=== PATIENT | female | born 1935 | race Caucasian/White ===

== ENCOUNTER 2022-05-13 10:06 | Observation (INO) ==
--- NOTE | 2022-05-13 10:10 | Emergency Department Note ---
HPI General Chief complaint: Syncope Stated complaint: syncope Time Seen by Provider: 05/13/22 10:10 Source: patient Mode of arrival: ambulatory Limitations: no limitations History of Present Illness HPI Narrative: 86-year-old female presenting with syncope. Patient reportedly had a syncopal episode this morning when she was going to the bathroom. was helping her and she passed out but did not fall or hit her head. Patient was seen last week in the emergency department for abdominal pain and dark stools. Hemoglobin was stable and CT abdomen showed a 3cm abdominal mass. She has follow-up for this on Monday. She still reports intermittent dark stools. She takes an aspirin daily, not on anticoagulation. Denies increased NSAID use. No headache, chest pain, shortness of breath, fever, abdominal pain, vomiting, or dysuria. Related Data Home Medications Medication Instructions Recorded Confirmed aspirin 81 mg chewable tablet 81 mg PO DAILY 11/19/18 05/06/22 cholecalciferol (vitamin D3) 50 50 mcg PO QDAY 07/24/20 05/06/22 mcg (2,000 unit) capsule cinnamon bark PO 07/24/20 05/06/22 cranberry fruit concentrate [Azo PO 07/24/20 05/06/22 Cranberry] lactobacillus combination no.8 PO 07/24/20 05/06/22 [Adult Probiotic] multivitamin 1 tab PO QDAY 07/24/20 05/06/22 omeprazole 20 mg capsule,delayed 20 mg PO .Q3W 07/24/20 05/06/22 release psyllium husk 3.4 gram/5.4 gram 1 tbsp PO QDAY 07/24/20 05/06/22 oral powder (Metamucil) simvastatin 10 mg tablet 10 mg PO QHS 07/24/20 05/06/22 turmeric PO 07/24/20 05/06/22 vitamin B complex PO 07/24/20 05/06/22 copper gluconate 2 mg tablet 2 mg PO QDAY 08/03/20 05/06/22 glucosamine sulfate 500 mg tablet 1,500 mg PO QDAY 08/03/20 05/06/22 (Glucosamine) levothyroxine 125 mcg tablet 125 mcg PO QDAY 08/03/20 05/06/22 lutein 40 mg capsule 40 mg PO QDAY 08/03/20 05/06/22 lysine 500 mg tablet (L-Lysine) 500 mg PO QDAY 08/03/20 05/06/22 omega 7-raf-frf-fish oil 1,200 mg 1 cap PO QDAY 08/03/20 05/06/22 (144 mg-216 mg) capsule (Fish Oil) zinc 50 mg tablet 50 mg PO QDAY 08/03/20 05/06/22 calcium carbonate 500 mg-vitamin 1 tab PO 05/04/21 05/06/22 D3 10 mcg (400 unit) chewable tablet vitamin E mixed 100 unit tablet 400 mg PO QDAY 05/04/21 05/06/22 carvedilol 3.125 mg tablet 3.125 mg PO BID 06/14/21 05/06/22 fluticasone propionate 50 1 spray intranasal BID 06/14/21 05/06/22 mcg/actuation nasal spray,suspension furosemide 20 mg tablet 20 mg PO QDAY 06/14/21 05/06/22 levothyroxine 112 mcg tablet 112 mcg PO QDAY 06/14/21 05/06/22 (Euthyrox) lisinopril 2.5 mg tablet 2.5 mg PO QDAY 06/14/21 05/06/22 vitamin B complex (B 1 tab PO QDAY 06/14/21 05/06/22 Complex-Vitamin B12) Previous Rx's Medication Instructions Recorded sodium bicarbonate 650 mg tablet 650 mg PO BID #180 tabs 10/29/20 sucralfate 1 gram tablet (Carafate) 1 g PO BID #30 tabs 05/06/22 Allergies Allergy/AdvReac Type Severity Reaction Status Date / Time Penicillins Allergy Mild Rash Verified 05/06/22 10:39 Sulfa (Sulfonamide Allergy Mild Rash Verified 05/06/22 10:39 Antibiotics) Review of Systems ROS ROS Narrative: Narrative: Constitutional: Denies fever or chills Eyes: Denies vision change ENT ED: Denies throat pain Cardiovascular: Denies chest pain or palpitations Respiratory: Denies shortness of breath or cough Gastrointestinal: Reports melena; Denies abdominal pain, nausea, vomiting or diarrhea Genitourinary: Denies dysuria or hematuria Musculoskeletal: Denies back pain Integumentary: Denies rash Neurological: Denies headache, weakness or dizziness Psychiatric: Denies anxiety Endocrine: Denies fatigue Hematological/Lymphatic: Denies easy bruising PFSH Narrative Patient History Narrative: Narrative: Medical/Surgical/Family History All Active Problems (Updated 05/13/22 @ 13:04 by Luís Carrillo MD) GI bleeding (Acute) Hyperthyroidism (Chronic) Hypertension (Chronic) High cholesterol (Chronic) Heart problem (Chronic) Skin cancer (Chronic) Abdominal mass (Chronic) UTI (urinary tract infection) (Chronic) Nausea & vomiting (Chronic) Systemic lupus erythematosus (Chronic) Osteoarthritis (Chronic) Hypothyroidism (Chronic) History of vein stripping (Chronic) History of cataract surgery (Chronic ~05/16/19) History of hand surgery (Chronic ~10/16/13) History of esophagogastroduodenoscopy (Chronic) Duodenitis (Chronic) History of colonoscopy (Chronic) History of cholecystectomy (Chronic ~1972) History of appendectomy (Chronic ~1972) History of delivery (Chronic) Abdominal pain (Chronic) GERD (gastroesophageal reflux disease) (Chronic) Frequency of urination (Chronic) Herpes (Chronic) ESR raised (Chronic) CRP elevated (Chronic) Encounter for long-term (current) use of high-risk medication (Chronic) Pyuria, sterile (Chronic) Lupus (Chronic ~1998) Arthritis (Chronic) Chicken pox (Chronic) Dog bite of right hand (Chronic) Environmental allergies (Chronic) Measles (Chronic) Mumps (Chronic) Osteoarthritis of right knee (Chronic) Pneumonia (Chronic) SLE (systemic lupus erythematosus related syndrome) (Chronic) History of foot surgery (Chronic ~2006) History of hysterectomy (Chronic) History of thumb surgery (Chronic ~2006) Osteopenia (Chronic) Postmenopausal (Chronic) Long-term use of Plaquenil (Chronic) Macular degeneration (Chronic) Chronic leukopenia (Chronic) Decreased bone mass (Chronic) Chronic kidney disease (CKD) stage G3b/A2, moderately decreased glomerular filtration rate (GFR) between 30-44 mL/min/1.73 square meter and albuminuria creatinine ratio between 30-299 mg/g (Chronic) 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) Metabolic acidosis (Chronic) Asymptomatic bacteriuria (Chronic) Cardiomyopathy (Chronic) Hepatitis C antibody test negative (Chronic) GI bleed (Acute) Intraabdominal mass (Acute) Medical History (Updated 05/13/22 @ 13:04 by Luís Carrillo MD) Abdominal mass Abdominal pain Anemia due to stage 3b chronic kidney disease Arthritis Asymptomatic bacteriuria Cardiomyopathy Chicken pox child Chronic kidney disease (CKD) stage G3b/A2, moderately decreased glomerular filtration rate (GFR) between 30-44 mL/min/1.73 square meter and albuminuria creatinine ratio between 30-299 mg/g Chronic leukopenia CRP elevated Decreased bone mass Dog bite of right hand Duodenitis Encounter for long-term (current) use of high-risk medication Environmental allergies ESR raised Frequency of urination GERD (gastroesophageal reflux disease) Heart problem Hepatitis C antibody test negative Herpes High cholesterol Hypertension Hyperthyroidism Hypothyroidism Long-term use of Plaquenil Lupus (~1998) Macular degeneration Measles child Metabolic acidosis Mumps child Nausea & vomiting Osteoarthritis Osteoarthritis of right knee Osteopenia Pneumonia Postmenopausal Pyuria, sterile Skin cancer SLE (systemic lupus erythematosus related syndrome) Systemic lupus erythematosus UTI (urinary tract infection) Surgical History History of appendectomy (~1972) History of cataract surgery (~05/16/19) Dr. Don - Bilateral History of delivery 1954, 1958 History of cholecystectomy (~1972) History of colonoscopy Dr. Cronin - 10/16/2001, 07/16/[address] Cronin - 10/16/2006, 06/12/2013 History of foot surgery (~2006) Right History of hand surgery (~10/16/13) Open wound dog bite, tendon repair right index finger area History of hysterectomy History of thumb surgery (~2006) Right History of vein stripping 2 times and also had injections Family History (Updated 05/12/22 @ 08:30 by Deepika Chavez) Father Myocardial infarction, Onset Age: 75 Date: 07/30/2008 Sudden Heart disease Son Hx of CABG Date: 06/02/2011 Diabetes Daughter Diabetes Disorder of thyroid gland Trouble swallowing after surgery due to some nerve damage Cancer Mother Perforated bowel, Onset Age: 96 Date: 05/23/2006 Osteoarthritis Brother Cancer Sister Osteoarthritis Pacemaker Social History Smoking Status: Never smoker Alcohol Intake Frequency: does not drink Substance Use: does not use Exam Narrative Narrative: Narrative: General Limitations: no limitations General appearance: Present alert and in no apparent distress Head Head: Present atraumatic and normocephalic Eye Eye: Present normal appearance, PERRL and EOMI; Absent scleral icterus, conjunctival injection or nystagmus ENT ENT: Present mucous membranes moist Neck Neck: Present normal inspection and trachea midline Chest Chest: Present symmetric chest wall rise Respiratory Respiratory: Present normal lung sounds bilaterally; Absent respiratory distress, rales/crackles, wheezes, stridor or accessory muscle use Cardiovascular Cardiovascular: Present regular rate and normal rhythm; Absent systolic murmur or diastolic murmur Adbominal Abdominal: Present soft; Absent distention, tenderness, guarding, rebound, rigidity or organomegaly Rectal Rectal: Present normal rectal tone and heme (+) stool; Absent tenderness Extremities Extremities: Present normal inspection; Absent pretibial edema Back Back: Absent CVA tenderness (R) or CVA tenderness (L) Neurological Neurological: Present alert and oriented X3; Absent motor sensory deficit Psychiatric Psychiatric: Present normal affect and normal mood Skin Skin: Present warm (WNL) and dry Course Consultations Consultation #1: Dr. Solares, general surgery Time: 12:48 Consultation #2: Dr. Ellis, hospitalist Time: 13:05 Vital Signs Vital signs: Vital Signs Temperature 98.4 F 05/13/22 10:06 Pulse Rate 79 05/13/22 10:06 Respiratory Rate 16 05/13/22 10:06 Blood Pressure 133/61 05/13/22 10:06 Pulse Oximetry (%) 97 05/13/22 10:06 Oxygen Delivery Method 05/13/22 10:06 Temperature 98.4 F 05/13/22 10:06 Pulse Rate 69 05/13/22 12:50 Respiratory Rate 16 05/13/22 10:06 Blood Pressure 92/68 05/13/22 12:50 Pulse Oximetry (%) 73 L 05/13/22 12:50 Oxygen Delivery Method 05/13/22 10:06 [facility] Narrative Medical decision making narrative: 86-year-old female presenting with syncope. Vital signs are normal. Rectal exam did show dark stool that was Hemoccult positive. EKG with no ischemic changes. Will obtain labs and reevaluate. Labs notable for a hemoglobin of 8.0 which is down from 13 last week. Type and screen was ordered. Spoke with Dr. Solares of general surgery who is willing to consult on the patient for endoscopy. Patient was endorsed to Dr. Ellis, hospitalist, for admission. Lab Data Lab results reviewed: Yes I reviewed the patient's lab results. Result diagrams: 05/13/22 10:50 05/13/22 10:50 Labs: Lab Results 07/05/13/22 05/13/22 Range/Units 10:50 10:50 10:50 WBC 15.8 H (4.5-11.0) K/mcL RBC 2.68 L (3.59-5.38) M/mcL Hgb 8.0 L (11.2-15.7) g/dL Hct 24.0 L (34.1-44.9) % MCV 89.6 (80.0-100.0) fL MCH 29.9 (26.0-34.0) pg MCHC 33.3 (31.0-36.0) g/dL RDW 14.0 (11.5-14.5) % Plt Count 304 (140-440) K/mcL MPV 10.2 (7.4-10.4) fL Immature Gran % (Auto) 0.7 H (0.0-0.5) % Neut % (Auto) 80.5 H (38.0-78.0) % Lymph % (Auto) 12.6 L (15.5-49.0) % Ritchie % (Auto) 5.5 (1.0-12.0) % Eos % (Auto) 0.3 (0.0-7.0) % Baso % (Auto) 0.4 (0.0-2.0) % Lymph # (Auto) 1.98 (1.50-4.80) K/mcL Ritchie # (Auto) 0.86 (0.10-0.90) K/mcL Eos # (Auto) 0.04 (0.00-0.70) K/mcL Baso # (Auto) 0.07 (0.00-0.30) K/mcL Immature Gran # 0.11 H (0.00-0.05) K/mcl Absolute Neutrophils 12.80 H (1.80-8.00) K/mcL PT 16.0 H (11.9-14.5) sec INR 1.2 H (0.9-1.1) APTT 32.7 (20.0-37.0) sec Sodium 134 (133-145) mmol/L Potassium 3.4 (3.3-5.1) mmol/L Chloride 103 (96-108) mmol/L Carbon Dioxide 24 (22-30) mmol/L Anion Gap 7.0 L (8.0-16.0) BUN 40 H (8-23) mg/dL Creatinine 0.9 (0.6-1.1) mg/dL GFR Calculation 57 Glucose 112 H (70-105) mg/dL Calcium 8.1 L (8.6-10.4) mg/dL Total Bilirubin 0.3 (0.1-1.0) mg/dL AST 23 (<32) U/L ALT 17 (<40) U/L Alkaline Phosphatase 121 H (39-117) U/L Total Protein 5.5 L (5.9-8.4) gm/dL Albumin 2.0 L (3.2-5.2) gm/dL Globulin 3.5 (2.2-3.7) gm/dL Albumin/Globulin Ratio 0.6 L (1.0-2.3) POC Troponin I (0.02-0.08) 05/13/22 Range/Units 10:53 WBC (4.5-11.0) K/mcL RBC (3.59-5.38) M/mcL Hgb (11.2-15.7) g/dL Hct (34.1-44.9) % MCV (80.0-100.0) fL MCH (26.0-34.0) pg MCHC (31.0-36.0) g/dL RDW (11.5-14.5) % Plt Count (140-440) K/mcL MPV (7.4-10.4) fL Immature Gran % (Auto) (0.0-0.5) % Neut % (Auto) (38.0-78.0) % Lymph % (Auto) (15.5-49.0) % Ritchie % (Auto) (1.0-12.0) % Eos % (Auto) (0.0-7.0) % Baso % (Auto) (0.0-2.0) % Lymph # (Auto) (1.50-4.80) K/mcL Ritchie # (Auto) (0.10-0.90) K/mcL Eos # (Auto) (0.00-0.70) K/mcL Baso # (Auto) (0.00-0.30) K/mcL Immature Gran # (0.00-0.05) K/mcl Absolute Neutrophils (1.80-8.00) K/mcL PT (11.9-14.5) sec INR (0.9-1.1) APTT (20.0-37.0) sec Sodium (133-145) mmol/L Potassium (3.3-5.1) mmol/L Chloride (96-108) mmol/L Carbon Dioxide (22-30) mmol/L Anion Gap (8.0-16.0) BUN (8-23) mg/dL Creatinine (0.6-1.1) mg/dL GFR Calculation Glucose (70-105) mg/dL Calcium (8.6-10.4) mg/dL Total Bilirubin (0.1-1.0) mg/dL AST (<32) U/L ALT (<40) U/L Alkaline Phosphatase (39-117) U/L Total Protein (5.9-8.4) gm/dL Albumin (3.2-5.2) gm/dL Globulin (2.2-3.7) gm/dL Albumin/Globulin Ratio (1.0-2.3) POC Troponin I 0 L (0.02-0.08) EKG Data EKG #1: EKG attestation: Yes I reviewed and interpreted this EKG. and Yes There are no EKG findings of acute coronary syndrome EKG results narrative: Sinus rhythm at [address] elevation or depression. Interpretation: no acute changes Discharge Plan Patient/Caregiver Discharge Instructions Pt seen by PARTS DEPARTMENT MANAGER/PA only: No Clinical Impression: GI bleeding Patient Disposition: Xfer As Outpt/Obs ([facility]) Condition: Fair Follow up with: Maria Fernanda Banerjee NP-C [Primary Care Provider] - Prescriptions: No Action vitamin B complex PO cinnamon bark PO cranberry fruit concentrate PO Metamucil 3.4 gram/5.4 gram powder 1 tbsp PO QDAY Rx Instructions: mix into at least 8 oz of water or juice before administering multivitamin Tablet 1 tab PO QDAY omeprazole 20 mg capsule,delayed release(DR/EC) 20 mg PO .Q3W lactobacillus combination no.8 PO simvastatin 10 mg tablet 10 mg PO QHS turmeric PO cholecalciferol (vitamin D3) 50 mcg (2,000 unit) capsule 50 mcg PO QDAY glucosamine sulfate [Glucosamine] 500 mg tablet 1,500 mg PO QDAY Rx Instructions: administer with meals vitamin E mixed 100 unit tablet 400 mg PO QDAY vitamin B complex [B Complex-Vitamin B12] Tablet 1 tab PO QDAY carvedilol 3.125 mg tablet 3.125 mg PO BID Rx Instructions: must administer with a meal/food levothyroxine [Euthyrox] 112 mcg tablet 112 mcg PO QDAY fluticasone propionate 50 mcg/actuation spray,suspension 1 spray intranasal BID Rx Instructions: administer into each nostril furosemide 20 mg tablet 20 mg PO QDAY lisinopril 2.5 mg tablet 2.5 mg PO QDAY sodium bicarbonate 650 mg tablet 650 mg PO BID Qty: 180 4RF copper gluconate 2 mg tablet 2 mg PO QDAY levothyroxine 125 mcg tablet 125 mcg PO QDAY lutein 40 mg capsule 40 mg PO QDAY Rx Instructions: administer with meals lysine [L-Lysine] 500 mg tablet 500 mg PO QDAY omega 1-hsh-djr-fish oil [Fish Oil] 1,200 (144-216) mg capsule 1 cap PO QDAY zinc 50 mg tablet 50 mg PO QDAY calcium carbonate-vitamin D3 500 mg(1,250mg) -400 unit tablet,chewable 1 tab PO aspirin 81 MG tablet,chewable 81 mg PO DAILY sucralfate [Carafate] 1 gram tablet 1 g PO BID Qty: 30 0RF
[2022-05-13] MEDS ORDERED: 0.9 % SODIUM CHLORIDE 250 ML IV SCH (10:30)
[2022-05-13 11:59] LABS: INR 1.2 (0.9-1.1); Partial Thromboplastin Time 32.7 sec (20.0-37.0)
[2022-05-13 12:14] LABS: ALT/SGPT 17 U/L (<40); AST/SGOT 23 U/L (<32); Albumin/Globulin Ratio 0.6 (1.0-2.3); Alkaline Phosphatase 121 U/L (39-117); Bilirubin,Total 0.3 mg/dL (0.1-1.0); Blood Urea Nitrogen 40 mg/dL (8-23); Calcium 8.1 mg/dL (8.6-10.4); Carbon Dioxide 24 mmol/L (22-30); Chloride 103 mmol/L (96-108); Globulin 3.5 gm/dL (2.2-3.7); Glomerular Filtration Rate 57; Glucose 112 mg/dL (70-105)
[2022-05-13 12:30] LABS: Basophils # (Auto) 0.07 K/mcL (0.00-0.30); Basophils % (Auto) 0.4 % (0.0-2.0); Eosinophils # (Auto) 0.04 K/mcL (0.00-0.70); Eosinophils % (Auto) 0.3 % (0.0-7.0); Lymphocytes # (Auto) 1.98 K/mcL (1.50-4.80); Lymphocytes % (Auto) 12.6 % (15.5-49.0); Mean Cell Volume 89.6 fL (80.0-100.0); Mean Corpuscular HGB Conc 33.3 g/dL (31.0-36.0); Mean Platelet Volume 10.2 fL (7.4-10.4); Monocytes # (Auto) 0.86 K/mcL (0.10-0.90); Monocytes % (Auto) 5.5 % (1.0-12.0); Neutrophils % (Auto) 80.5 % (38.0-78.0); Platelet Count 304 K/mcL (140-440); RBC 2.68 M/mcL (3.59-5.38); WBC 15.8 K/mcL (4.5-11.0)
[2022-05-13] MEDS ORDERED: 0.9 % SODIUM CHLORIDE 1,000 ML IV ONE (12:58)
--- NOTE | 2022-05-13 13:44 | Internal Med History&Physical ---
HPI History of Present Illness Patient information: Note initiated : 05/13/22 at 1:34 pm Service Date, if different from initiated Date: [] Patient: Cassie Vora 86 y/o F admitted on for syncope. Chief Complaint: [black stool] Chief complaint: black stool History of present illness: Ms. Vora is a 86 year old F history of lupus, essential hypertensions, mixed dyslipidemia, hypothyroidism, presenting with 1 week history of black stool. She presented to our ED last Monday for similar complaint and her hemoglobin count was 13.0. She was being discharged home. She complains of having continued multiple episode of black stool since being discharged from the ED last week. Earlier today she had a near syncope episode and was being brought to our ED for further reevaluations. She is committing of also having diffused mild cramping constant abdominal pain. Multiple episode of black stool without fresh blood. Denies any chest pain palpitations or shortness of breath. Patient is only on aspirin and is not otherwise on any blood thinner. Of note, CT abdomen imaging done from last ER visit showing a 3 cm satellite lesion with heavy central calcifications within the mesenteric cavity in the right mid abdomen. A follow-up biopsy examination was being scheduled for next Monday. Vital signs at ED presentations significant for borderline low blood pressure. Labs significant for hemoglobin count of 8.0. Constitutional Constitutional: Absent chills, excessive sweating, fatigue, fever(s) or weakness EENT Eyes: Absent blurry vision, change in vision, loss of vision or other visual disturbances Ears: Absent decreased hearing or tinnitus Nose, mouth and throat: Absent abnormal hearing, dry mouth, headache(s), nasal congestion or sore throat Cardiovascular Cardiovascular: Absent chest pain, chest pain at rest, edema, irregular heart rhythm or palpatations Respiratory Respiratory: Absent cough, dyspnea or wheezing Gastrointestinal Gastrointestinal: Present melena; Absent abdominal pain, constipation, diarrhea, nausea or vomiting Musculoskeletal Musculoskeletal: Absent back pain, deformity, limited range of motion, muscle cramps, muscle weakness or numbness Integumentary Integumentary: Absent lesions, rash or wounds Neurological Neurological: Absent focal weakness, headache(s) or numbness Psychiatric Psychiatric: Absent anxiety, depression or hallucinations PFSH PFSH All Active Problems (Updated 05/13/22 @ 13:40 by Anthony Ellis MD) Dyslipidemia (Acute) GI bleeding (Acute) Hyperthyroidism (Chronic) Hypertension (Chronic) High cholesterol (Chronic) Heart problem (Chronic) Skin cancer (Chronic) Abdominal mass (Chronic) UTI (urinary tract infection) (Chronic) Nausea & vomiting (Chronic) Systemic lupus erythematosus (Chronic) Osteoarthritis (Chronic) Hypothyroidism (Chronic) History of vein stripping (Chronic) History of cataract surgery (Chronic ~05/16/19) History of hand surgery (Chronic ~10/16/13) History of esophagogastroduodenoscopy (Chronic) Duodenitis (Chronic) History of colonoscopy (Chronic) History of cholecystectomy (Chronic ~1972) History of appendectomy (Chronic ~1972) History of delivery (Chronic) Abdominal pain (Chronic) GERD (gastroesophageal reflux disease) (Chronic) Frequency of urination (Chronic) Herpes (Chronic) ESR raised (Chronic) CRP elevated (Chronic) Encounter for long-term (current) use of high-risk medication (Chronic) Pyuria, sterile (Chronic) Lupus (Chronic ~1998) Arthritis (Chronic) Chicken pox (Chronic) Dog bite of right hand (Chronic) Environmental allergies (Chronic) Measles (Chronic) Mumps (Chronic) Osteoarthritis of right knee (Chronic) Pneumonia (Chronic) SLE (systemic lupus erythematosus related syndrome) (Chronic) History of foot surgery (Chronic ~2006) History of hysterectomy (Chronic) History of thumb surgery (Chronic ~2006) Osteopenia (Chronic) Postmenopausal (Chronic) Long-term use of Plaquenil (Chronic) Macular degeneration (Chronic) Chronic leukopenia (Chronic) Decreased bone mass (Chronic) Chronic kidney disease (CKD) stage G3b/A2, moderately decreased glomerular filtration rate (GFR) between 30-44 mL/min/1.73 square meter and albuminuria creatinine ratio between 30-299 mg/g (Chronic) 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) Metabolic acidosis (Chronic) Asymptomatic bacteriuria (Chronic) Cardiomyopathy (Chronic) Hepatitis C antibody test negative (Chronic) GI bleed (Acute) Intraabdominal mass (Acute) Medical History (Updated 05/13/22 @ 13:40 by Anthony Ellis MD) Abdominal mass Abdominal pain Anemia due to stage 3b chronic kidney disease Arthritis Asymptomatic bacteriuria Cardiomyopathy Chicken pox child Chronic kidney disease (CKD) stage G3b/A2, moderately decreased glomerular filtration rate (GFR) between 30-44 mL/min/1.73 square meter and albuminuria creatinine ratio between 30-299 mg/g Chronic leukopenia CRP elevated Decreased bone mass Dog bite of right hand Duodenitis Encounter for long-term (current) use of high-risk medication Environmental allergies ESR raised Frequency of urination GERD (gastroesophageal reflux disease) Heart problem Hepatitis C antibody test negative Herpes High cholesterol Hypertension Hyperthyroidism Hypothyroidism Long-term use of Plaquenil Lupus (~1998) Macular degeneration Measles child Metabolic acidosis Mumps child Nausea & vomiting Osteoarthritis Osteoarthritis of right knee Osteopenia Pneumonia Postmenopausal Pyuria, sterile Skin cancer SLE (systemic lupus erythematosus related syndrome) Systemic lupus erythematosus UTI (urinary tract infection) Surgical History History of appendectomy (~1972) History of cataract surgery (~05/16/19) Dr. Don - Bilateral History of delivery 1954, 1958 History of cholecystectomy (~1972) History of colonoscopy Dr. Cronin - 10/16/2001, 07/16/[address] Cronin - 10/16/2006, 06/12/2013 History of foot surgery (~2006) Right History of hand surgery (~10/16/13) Open wound dog bite, tendon repair right index finger area History of hysterectomy History of thumb surgery (~2006) Right History of vein stripping 2 times and also had injections Family History (Updated 05/12/22 @ 08:30 by Deepika Chavez) Father Myocardial infarction, Onset Age: 75 Date: 07/30/2008 Sudden Heart disease Son Hx of CABG Date: 06/02/2011 Diabetes Daughter Diabetes Disorder of thyroid gland Trouble swallowing after surgery due to some nerve damage Cancer Mother Perforated bowel, Onset Age: 96 Date: 05/23/2006 Osteoarthritis Brother Cancer Sister Osteoarthritis Pacemaker Social History housing: house lives independently: Yes marital status: education level: high school occupational status: retired physical activity: none smoking status: Never smoker alcohol intake frequency: does not drink substance use type: does not use seatbelt use: always MEDS/ALLERGIES Home Medications and Allergies Home Medications Medication Instructions Recorded Confirmed Type aspirin 81 mg chewable tablet 81 mg PO DAILY 11/19/18 05/06/22 History cholecalciferol (vitamin D3) 50 50 mcg PO QDAY 07/24/20 05/06/22 History mcg (2,000 unit) capsule cinnamon bark PO 07/24/20 05/06/22 History cranberry fruit concentrate [Azo PO 07/24/20 05/06/22 History Cranberry] lactobacillus combination no.8 PO 07/24/20 05/06/22 History [Adult Probiotic] multivitamin 1 tab PO QDAY 07/24/20 05/06/22 History omeprazole 20 mg capsule,delayed 20 mg PO .Q3W 07/24/20 05/06/22 History release psyllium husk 3.4 gram/5.4 gram 1 tbsp PO QDAY 07/24/20 05/06/22 History oral powder (Metamucil) simvastatin 10 mg tablet 10 mg PO QHS 07/24/20 05/06/22 History turmeric PO 07/24/20 05/06/22 History vitamin B complex PO 07/24/20 05/06/22 History copper gluconate 2 mg tablet 2 mg PO QDAY 08/03/20 05/06/22 History glucosamine sulfate 500 mg tablet 1,500 mg PO QDAY 08/03/20 05/06/22 History (Glucosamine) levothyroxine 125 mcg tablet 125 mcg PO QDAY 08/03/20 05/06/22 History lutein 40 mg capsule 40 mg PO QDAY 08/03/20 05/06/22 History lysine 500 mg tablet (L-Lysine) 500 mg PO QDAY 08/03/20 05/06/22 History omega 2-jcr-sqf-fish oil 1,200 mg 1 cap PO QDAY 08/03/20 05/06/22 History (144 mg-216 mg) capsule (Fish Oil) zinc 50 mg tablet 50 mg PO QDAY 08/03/20 05/06/22 History sodium bicarbonate 650 mg tablet 650 mg PO BID #180 tabs 10/29/20 05/06/22 Rx calcium carbonate 500 mg-vitamin 1 tab PO 05/04/21 05/06/22 History D3 10 mcg (400 unit) chewable tablet vitamin E mixed 100 unit tablet 400 mg PO QDAY 05/04/21 05/06/22 History carvedilol 3.125 mg tablet 3.125 mg PO BID 06/14/21 05/06/22 History fluticasone propionate 50 1 spray intranasal BID 06/14/21 05/06/22 History mcg/actuation nasal spray,suspension furosemide 20 mg tablet 20 mg PO QDAY 06/14/21 05/06/22 History levothyroxine 112 mcg tablet 112 mcg PO QDAY 06/14/21 05/06/22 History (Euthyrox) lisinopril 2.5 mg tablet 2.5 mg PO QDAY 06/14/21 05/06/22 History vitamin B complex (B 1 tab PO QDAY 06/14/21 05/06/22 History Complex-Vitamin B12) sucralfate 1 gram tablet (Carafate) 1 g PO BID #30 tabs 05/06/22 Rx Allergies Allergy/AdvReac Type Severity Reaction Status Date / Time Penicillins Allergy Mild Rash Verified 05/06/22 10:39 Sulfa (Sulfonamide Allergy Mild Rash Verified 05/06/22 10:39 Antibiotics) EXAM Constitutional Vitals: Temp Pulse Resp BP Pulse Ox O2 Del Method 36.9 C 79 16 119/61 100 05/13/22 10:06 05/13/22 13:16 05/13/22 10:06 05/13/22 13:16 05/13/22 13:16 05/13/22 10:06 General appearance: cooperative and no acute distress Head Head exam: Present atraumatic and normocephalic Eye Eye exam: Present EOMI and PERRL ENT ENT exam: Present mucous membranes moist, normal exam and normal external ear exam Neck Neck exam: Present normal inspection; Absent lymphadenopathy, tenderness or thyromegaly Respiratory Respiratory exam: Absent accessory muscle use, respiratory distress or wheezes Cardiovascular Cardiovascular exam: Present normal rate and rhythm; Absent JVD GI/Abdominal GI/Abdominal exam: Present normal bowel sounds, soft and tenderness; Absent organomegaly Extremities Exam Extremities exam: Present full ROM, normal capillary refill and normal inspection; Absent tenderness Neurological Exam Neurological exam: Present alert, CN II-XII intact and oriented X3; Absent motor sensory deficit Psychiatric Psychiatric exam: Present normal affect and normal mood; Absent anxious or depressed Skin Skin exam: Present dry and intact DATA Data Completed and Pending Labs: Labs from last 24 hours 05/13/22 05/13/22 05/13/22 10:53 10:50 10:50 WBC 15.8 H RBC 2.68 L Hgb 8.0 L Hct 24.0 L MCV 89.6 MCH 29.9 MCHC 33.3 RDW 14.0 Plt Count 304 MPV 10.2 Immature Gran % (Auto) 0.7 H Neut % (Auto) 80.5 H Lymph % (Auto) 12.6 L [place] % (Auto) 5.5 Eos % (Auto) 0.3 Baso % (Auto) 0.4 Lymph # (Auto) 1.98 [place] # (Auto) 0.86 Eos # (Auto) 0.04 Baso # (Auto) 0.07 Immature Gran # 0.11 H Absolute Neutrophils 12.80 H PT 16.0 H INR 1.2 H APTT 32.7 Sodium Potassium Chloride Carbon Dioxide Anion Gap BUN Creatinine GFR Calculation Glucose Calcium Total Bilirubin AST ALT Alkaline Phosphatase Total Protein Albumin Globulin Albumin/Globulin Ratio POC Troponin I 0 L 05/13/22 10:50 WBC RBC Hgb Hct MCV MCH MCHC RDW Plt Count MPV Immature Gran % (Auto) Neut % (Auto) Lymph % (Auto) [place] % (Auto) Eos % (Auto) Baso % (Auto) Lymph # (Auto) [place] # (Auto) Eos # (Auto) Baso # (Auto) Immature Gran # Absolute Neutrophils PT INR APTT Sodium 134 Potassium 3.4 Chloride 103 Carbon Dioxide 24 Anion Gap 7.0 L BUN 40 H Creatinine 0.9 GFR Calculation 57 Glucose 112 H Calcium 8.1 L Total Bilirubin 0.3 AST 23 ALT 17 Alkaline Phosphatase 121 H Total Protein 5.5 L Albumin 2.0 L Globulin 3.5 Albumin/Globulin Ratio 0.6 L POC Troponin I A/P Assessment and plan (1) GI bleeding: Status: Acute (2) Hypertension: Status: Chronic (3) Dyslipidemia: Status: Acute (4) SLE (systemic lupus erythematosus related syndrome): Status: Chronic (5) Intraabdominal mass: Status: Acute (6) Hypothyroidism: Status: Chronic Narrative A/P Narrative: Assessment and Plans: 1. (Upper) GI bleeding: Observation med surg telemetry General surgeon Dr. Solares consulted, plan to perform EGD tomorrow NPO after midnight wth IV fluid NS@100cc/hr Protonix 40mg IV BID Sucralfate Serial cbc to trend H/H Hold Aspirin 2. Intraabdominal mass: Pending biopsy next Monday05/17/22 3. h/o essential hypertension: Hold oral antihypertensives (Coreg, Lisinopril) for borderline blood pressure 4. Dyslipidemia: Continue statin therapy 5. h/o SLE: Continue to monitor 6. h/o hypothyroidism: Continue thyroid replacement therapy GI ppx: Protonix 40mg IV BID DVT ppx: SCDs Code status: Full Prognosis: stable Disposition: observation med telemetry Time Spent With Patient Time: Total time spent is greater than 50% in coordination of care (as documented) at patient's floor/unit and/or counseling patient: Total time spent with greater than 50% in coordination of care (as documented) at patient's floor/unit and/or counseling patient:: 50 - 70 minutes
--- NOTE | 2022-05-13 13:58 | EKG ---
[facility] Test Date: 2022-05-13 Pat Name: Cassie Vora Department: ED Room: Gender: Female Technology Program Manager: CS : [id number] Requested By: Luís Carrillo Order Number: [id number] Reading MD: Larry Pena Measurements Intervals [place] Rate: 79 P: 54 NV: 181 QRS: -13 QRSD: 114 T: 102 QT: 407 QTc: 467 Interpretive Statements Sinus rhythm Probable LVH with secondary repol abnrm Electronically Signed On 05-13-2022 13:58:09 PDT by Larry Pena /store/M0/[id number]
[2022-05-13] MEDS ORDERED: ONDANSETRON 4 MG/2 ML VIAL IV PRN (14:49)
[2022-05-13] MEDS ORDERED: ACETAMINOPHEN 325 MG TABLET PO PRN (14:49)
[2022-05-13] MEDS ORDERED: IPRATROPIUM/ALBUTEROL 3 ML AMPUL.NEB NEB PRN (14:49)
[2022-05-13] MEDS ORDERED: traZODone HCL 50 MG TABLET PO PRN (14:49)
[2022-05-13] MEDS: 0.9 % SODIUM CHLORIDE 10 ML SYRINGE IV SCH ×2 (17:31→20:29)
[2022-05-13] MEDS: SUCRALFATE 1 GM TABLET PO SCH (17:32)
[2022-05-13] MEDS: PANTOPRAZOLE 40 MG VIAL IV SCH (17:32)
[2022-05-13] MEDS: 0.9 % SODIUM CHLORIDE 1,000 ML IV SCH (17:32)
[2022-05-13 18:21] LABS: Basophils # (Auto) 0.07 K/mcL (0.00-0.30); Basophils % (Auto) 0.6 % (0.0-2.0); Eosinophils # (Auto) 0.13 K/mcL (0.00-0.70); Eosinophils % (Auto) 1.1 % (0.0-7.0); Hematocrit 22.7 % (34.1-44.9); Hemoglobin 7.6 g/dL (11.2-15.7); Lymphocytes # (Auto) 2.15 K/mcL (1.50-4.80); Lymphocytes % (Auto) 17.8 % (15.5-49.0); Mean Cell Volume 89.4 fL (80.0-100.0); Mean Corpuscular HGB Conc 33.5 g/dL (31.0-36.0); Mean Platelet Volume 9.8 fL (7.4-10.4); Monocytes # (Auto) 0.69 K/mcL (0.10-0.90); Monocytes % (Auto) 5.7 % (1.0-12.0); Neutrophils % (Auto) 74.3 % (38.0-78.0); Platelet Count 313 K/mcL (140-440); RBC 2.54 M/mcL (3.59-5.38); Red Cell Distribution Width 14.1 % (11.5-14.5); WBC 12.1 K/mcL (4.5-11.0)
[2022-05-13] MEDS: DOCUSATE SODIUM 100 MG CAPSULE PO SCH (20:29)
[2022-05-13] MEDS: FLUTICASONE PROPIONATE SPRAY.NAS NS SCH (20:29)
[2022-05-13] MEDS ORDERED: SIMVASTATIN 10 MG TABLET PO SCH (21:00)
[2022-05-13] MEDS ORDERED: SENNOSIDES 1 TABLET PO SCH (21:00)
--- NOTE | 2022-05-13 22:38 | General Surgery Consult Note ---
HPI Data of Consult Patient: new to practice Consult date: 05/13/22 Primary Care Provider: Maria Fernanda Banerjee NP Consult Narrative Reason for consult: GI bleed History of present illness: Ms. Vora is a 86 year old F history of lupus, essential hypertensions, mixed dyslipidemia, hypothyroidism, presenting with 1 week history of black stool. She presented to our ED last Monday for similar complaint and her hemoglobin count was 13.0. She was being discharged home. She complains of having continued multiple episode of black stool since being discharged from the ED last week. Earlier today she had a near syncope episode and was being brought to our ED for further reevaluations. She is committing of also having diffused mild cramping constant abdominal pain. Multiple episode of black stool without fresh blood. Denies any chest pain palpitations or shortness of breath. Patient is only on aspirin and is not otherwise on any blood thinner. Of note, CT abdomen imaging done from last ER visit showing a 3 cm satellite lesion with heavy central calcifications within the mesenteric cavity in the right mid abdomen. A follow-up biopsy examination was being scheduled for next Monday. Vital signs at ED presentations significant for borderline low blood pressure. Labs significant for hemoglobin count of 8.0. I was asked to see patiient for upper endoscopy. cc:: CC: Anthony Ellis MD Review of Systems Review of systems: All systems reviewed, negative other than above PFSH PFSH All Active Problems (Updated 05/13/22 @ 13:40 by Anthony Ellis MD) Dyslipidemia (Acute) GI bleeding (Acute) Hyperthyroidism (Chronic) Hypertension (Chronic) High cholesterol (Chronic) Heart problem (Chronic) Skin cancer (Chronic) Abdominal mass (Chronic) UTI (urinary tract infection) (Chronic) Nausea & vomiting (Chronic) Systemic lupus erythematosus (Chronic) Osteoarthritis (Chronic) Hypothyroidism (Chronic) History of vein stripping (Chronic) History of cataract surgery (Chronic ~05/16/19) History of hand surgery (Chronic ~10/16/13) History of esophagogastroduodenoscopy (Chronic) Duodenitis (Chronic) History of colonoscopy (Chronic) History of cholecystectomy (Chronic ~1972) History of appendectomy (Chronic ~1972) History of delivery (Chronic) Abdominal pain (Chronic) GERD (gastroesophageal reflux disease) (Chronic) Frequency of urination (Chronic) Herpes (Chronic) ESR raised (Chronic) CRP elevated (Chronic) Encounter for long-term (current) use of high-risk medication (Chronic) Pyuria, sterile (Chronic) Lupus (Chronic ~1998) Arthritis (Chronic) Chicken pox (Chronic) Dog bite of right hand (Chronic) Environmental allergies (Chronic) Measles (Chronic) Mumps (Chronic) Osteoarthritis of right knee (Chronic) Pneumonia (Chronic) SLE (systemic lupus erythematosus related syndrome) (Chronic) History of foot surgery (Chronic ~2006) History of hysterectomy (Chronic) History of thumb surgery (Chronic ~2006) Osteopenia (Chronic) Postmenopausal (Chronic) Long-term use of Plaquenil (Chronic) Macular degeneration (Chronic) Chronic leukopenia (Chronic) Decreased bone mass (Chronic) Chronic kidney disease (CKD) stage G3b/A2, moderately decreased glomerular filtration rate (GFR) between 30-44 mL/min/1.73 square meter and albuminuria creatinine ratio between 30-299 mg/g (Chronic) 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) Metabolic acidosis (Chronic) Asymptomatic bacteriuria (Chronic) Cardiomyopathy (Chronic) Hepatitis C antibody test negative (Chronic) GI bleed (Acute) Intraabdominal mass (Acute) Medical History (Updated 05/13/22 @ 13:40 by Anthony Ellis MD) Abdominal mass Abdominal pain Anemia due to stage 3b chronic kidney disease Arthritis Asymptomatic bacteriuria Cardiomyopathy Chicken pox child Chronic kidney disease (CKD) stage G3b/A2, moderately decreased glomerular filtration rate (GFR) between 30-44 mL/min/1.73 square meter and albuminuria creatinine ratio between 30-299 mg/g Chronic leukopenia CRP elevated Decreased bone mass Dog bite of right hand Duodenitis Encounter for long-term (current) use of high-risk medication Environmental allergies ESR raised Frequency of urination GERD (gastroesophageal reflux disease) Heart problem Hepatitis C antibody test negative Herpes High cholesterol Hypertension Hyperthyroidism Hypothyroidism Long-term use of Plaquenil Lupus (~1998) Macular degeneration Measles child Metabolic acidosis Mumps child Nausea & vomiting Osteoarthritis Osteoarthritis of right knee Osteopenia Pneumonia Postmenopausal Pyuria, sterile Skin cancer SLE (systemic lupus erythematosus related syndrome) Systemic lupus erythematosus UTI (urinary tract infection) Surgical History History of appendectomy (~1972) History of cataract surgery (~05/16/19) Dr. Don - Bilateral History of delivery 1954, 1959 History of cholecystectomy (~1972) History of colonoscopy Dr. Cronin - 10/16/2001, 07/16/[address] Cronin - 10/16/2006, 06/12/2013 History of foot surgery (~2006) Right History of hand surgery (~10/16/13) Open wound dog bite, tendon repair right index finger area History of hysterectomy History of thumb surgery (~2006) Right History of vein stripping 2 times and also had injections Family History (Updated 05/12/22 @ 08:30 by Deepika Chavez) Father Myocardial infarction, Onset Age: 75 Date: 07/30/2008 Sudden Heart disease Son Hx of CABG Date: 06/02/2011 Diabetes Daughter Diabetes Disorder of thyroid gland Trouble swallowing after surgery due to some nerve damage Cancer Mother Perforated bowel, Onset Age: 96 Date: 05/23/2006 Osteoarthritis Brother Cancer Sister Osteoarthritis Pacemaker Social History housing: house lives independently: Yes marital status: education level: high school occupational status: retired physical activity: none smoking status: Never smoker alcohol intake frequency: does not drink substance use type: does not use seatbelt use: always MEDS/ALLERGIES Home Medications and Allergies Home Medications Medication Instructions Recorded Confirmed Type aspirin 81 mg chewable tablet 81 mg PO DAILY 11/19/18 05/06/22 History cholecalciferol (vitamin D3) 50 50 mcg PO QDAY 07/24/20 05/06/22 History mcg (2,000 unit) capsule cinnamon bark PO 07/24/20 05/06/22 History cranberry fruit concentrate [Azo PO 07/24/20 05/06/22 History Cranberry] lactobacillus combination no.8 PO 07/24/20 05/06/22 History [Adult Probiotic] multivitamin 1 tab PO QDAY 07/24/20 05/06/22 History omeprazole 20 mg capsule,delayed 20 mg PO .Q3W 07/24/20 05/06/22 History release psyllium husk 3.4 gram/5.4 gram 1 tbsp PO QDAY 07/24/20 05/06/22 History oral powder (Metamucil) simvastatin 10 mg tablet 10 mg PO QHS 07/24/20 05/06/22 History turmeric PO 07/24/20 05/06/22 History vitamin B complex PO 07/24/20 05/06/22 History copper gluconate 2 mg tablet 2 mg PO QDAY 08/03/20 05/06/22 History glucosamine sulfate 500 mg tablet 1,500 mg PO QDAY 08/03/20 05/06/22 History (Glucosamine) lutein 40 mg capsule 40 mg PO QDAY 08/03/20 05/06/22 History lysine 500 mg tablet (L-Lysine) 500 mg PO QDAY 08/03/20 05/06/22 History omega 1-lyf-kxx-fish oil 1,200 mg 1 cap PO QDAY 08/03/20 05/06/22 History (144 mg-216 mg) capsule (Fish Oil) zinc 50 mg tablet 50 mg PO QDAY 08/03/20 05/06/22 History sodium bicarbonate 650 mg tablet 650 mg PO BID #180 tabs 10/29/20 05/06/22 Rx calcium carbonate 500 mg-vitamin 1 tab PO 05/04/21 05/06/22 History D3 10 mcg (400 unit) chewable tablet vitamin E mixed 100 unit tablet 400 mg PO QDAY 05/04/21 05/06/22 History carvedilol 3.125 mg tablet 3.125 mg PO BID 06/14/21 05/06/22 History fluticasone propionate 50 1 spray intranasal BID 06/14/21 05/06/22 History mcg/actuation nasal spray,suspension furosemide 20 mg tablet 20 mg PO QDAY 06/14/21 05/06/22 History levothyroxine 112 mcg tablet 112 mcg PO Q48H 06/14/21 05/13/22 History (Euthyrox) lisinopril 2.5 mg tablet 2.5 mg PO QDAY 06/14/21 05/06/22 History vitamin B complex (B 1 tab PO QDAY 06/14/21 05/06/22 History Complex-Vitamin B12) sucralfate 1 gram tablet (Carafate) 1 g PO BID #30 tabs 05/06/22 Rx levothyroxine 100 mcg tablet 100 mcg PO Q48H 05/13/22 05/13/22 History Allergies Allergy/AdvReac Type Severity Reaction Status Date / Time Penicillins Allergy Mild Rash Verified 05/06/22 10:39 Sulfa (Sulfonamide Allergy Mild Rash Verified 05/06/22 10:39 Antibiotics) Physical Examination Vital Signs Vital signs: Temp Pulse Resp BP Pulse Ox O2 Del Method 98.9 F 80 16 103/54 98 05/13/22 14:00 05/13/22 20:21 05/13/22 20:21 05/13/22 20:21 05/13/22 20:21 05/13/22 20:21 General physical appearance General physical exam: well developed, well nourished and no distress Eyes Eye exam: PERRL and normal ocular movement ENT ENT exam: normal pinna, normal nares, normal mucosa, no hearing loss and no congestion Head Head exam IM: Present atraumatic and normocephalic Neck Neck exam: no masses, no bruits, trachea midline, no lymphadenopathy and no venous distension Cardiovascular Cardiovascular exam IM: Present normal rate and rhythm Respiratory Respiratory exam: normal expansion, normal respiratory effort, clear to percussion and clear to auscultation Abdomen Abdomen: Present soft, non tender and bowel sounds Hernia: Present none Genitourinary Genitourinary (Female): Present normal external genitalia Rectum Rectum: Present normal sphincter tone, no hemorrhoids, no tenderness, no masses and no bleeding Integumentary Integumentary: Present no rash, no growths and no abnormal pigmentation Neurologic Neurologic: Present normal coordination and normal sensation Musculoskeletal Musculoskeletal: Present normal gait and normal posture Psychiatric Psychiatric: Present oriented to time, oriented to person, oriented to place, speech is normal and memory intact Results Labs Result diagrams: 05/13/22 17:51 05/13/22 10:50 Labs: Abnormal lab results 05/13/22 05/13/22 05/13/22 Range/Units 10:50 10:50 10:50 WBC 15.8 H (4.5-11.0) K/mcL RBC 2.68 L (3.59-5.38) M/mcL Hgb 8.0 L (11.2-15.7) g/dL Hct 24.0 L (34.1-44.9) % Immature Gran % (Auto) 0.7 H (0.0-0.5) % Neut % (Auto) 80.5 H (38.0-78.0) % Lymph % (Auto) 12.6 L (15.5-49.0) % Immature Gran # 0.11 H (0.00-0.05) K/mcl Absolute Neutrophils 12.80 H (1.80-8.00) K/mcL PT 16.0 H (11.9-14.5) sec INR 1.2 H (0.9-1.1) Anion Gap 7.0 L (8.0-16.0) BUN 40 H (8-23) mg/dL Glucose 112 H (70-105) mg/dL Calcium 8.1 L (8.6-10.4) mg/dL Alkaline Phosphatase 121 H (39-117) U/L Total Protein 5.5 L (5.9-8.4) gm/dL Albumin 2.0 L (3.2-5.2) gm/dL Albumin/Globulin Ratio 0.6 L (1.0-2.3) POC Troponin I (0.02-0.08) 05/13/22 05/13/22 Range/Units 10:53 17:51 WBC 12.1 H (4.5-11.0) K/mcL RBC 2.54 L (3.59-5.38) M/mcL Hgb 7.6 L (11.2-15.7) g/dL Hct 22.7 L (34.1-44.9) % Immature Gran % (Auto) (0.0-0.5) % Neut % (Auto) (38.0-78.0) % Lymph % (Auto) (15.5-49.0) % Immature Gran # 0.06 H (0.00-0.05) K/mcl Absolute Neutrophils 9.05 H (1.80-8.00) K/mcL PT (11.9-14.5) sec INR (0.9-1.1) Anion Gap (8.0-16.0) BUN (8-23) mg/dL Glucose (70-105) mg/dL Calcium (8.6-10.4) mg/dL Alkaline Phosphatase (39-117) U/L Total Protein (5.9-8.4) gm/dL Albumin (3.2-5.2) gm/dL Albumin/Globulin Ratio (1.0-2.3) POC Troponin I 0 L (0.02-0.08) Diabetes panel 05/13/22 Range/Units 10:50 Sodium 134 (133-145) mmol/L Potassium 3.4 (3.3-5.1) mmol/L Chloride 103 (96-108) mmol/L Carbon Dioxide 24 (22-30) mmol/L BUN 40 H (8-23) mg/dL Creatinine 0.9 (0.6-1.1) mg/dL Glucose 112 H (70-105) mg/dL Calcium 8.1 L (8.6-10.4) mg/dL AST 23 (<32) U/L ALT 17 (<40) U/L Alkaline Phosphatase 121 H (39-117) U/L Total Protein 5.5 L (5.9-8.4) gm/dL Albumin 2.0 L (3.2-5.2) gm/dL Calcium panel 05/13/22 Range/Units 10:50 Calcium 8.1 L (8.6-10.4) mg/dL Albumin 2.0 L (3.2-5.2) gm/dL Pituitary panel 05/13/22 Range/Units 10:50 Sodium 134 (133-145) mmol/L Potassium 3.4 (3.3-5.1) mmol/L Chloride 103 (96-108) mmol/L Carbon Dioxide 24 (22-30) mmol/L BUN 40 H (8-23) mg/dL Creatinine 0.9 (0.6-1.1) mg/dL Glucose 112 H (70-105) mg/dL Calcium 8.1 L (8.6-10.4) mg/dL Adrenal panel 05/13/22 Range/Units 10:50 Sodium 134 (133-145) mmol/L Potassium 3.4 (3.3-5.1) mmol/L Chloride 103 (96-108) mmol/L Carbon Dioxide 24 (22-30) mmol/L BUN 40 H (8-23) mg/dL Creatinine 0.9 (0.6-1.1) mg/dL Glucose 112 H (70-105) mg/dL Calcium 8.1 L (8.6-10.4) mg/dL Total Bilirubin 0.3 (0.1-1.0) mg/dL AST 23 (<32) U/L ALT 17 (<40) U/L Alkaline Phosphatase 121 H (39-117) U/L Total Protein 5.5 L (5.9-8.4) gm/dL Albumin 2.0 L (3.2-5.2) gm/dL All other labs normal. A/P Assessment and plan (1) GI bleeding: Assessment and plan: s/s c/x upper gi bleed. Plan: risks, benifits d/w patient and family Plan EGD in am Status: Acute Time Spent With Patient Time: Total time spent is greater than 50% in coordination of care (as documented) at patient's floor/unit and/or counseling patient:
[2022-05-14] MEDS: 0.9 % SODIUM CHLORIDE 1,000 ML IV SCH ×3 (02:26→16:01)
[2022-05-14] MEDS: 0.9 % SODIUM CHLORIDE 10 ML SYRINGE IV SCH ×2 (05:37→16:02)
[2022-05-14 06:37] LABS: Blood Urea Nitrogen 36 mg/dL (8-23); Calcium 7.7 mg/dL (8.6-10.4); Carbon Dioxide 21 mmol/L (22-30); Chloride 107 mmol/L (96-108); Glomerular Filtration Rate 50; Glucose 86 mg/dL (70-105)
[2022-05-14 06:48] LABS: Basophils # (Auto) 0.07 K/mcL (0.00-0.30); Basophils % (Auto) 0.8 % (0.0-2.0); Eosinophils # (Auto) 0.33 K/mcL (0.00-0.70); Eosinophils % (Auto) 3.8 % (0.0-7.0); Hematocrit 20.1 % (34.1-44.9); Hemoglobin 6.8 g/dL (11.2-15.7); Lymphocytes # (Auto) 2.53 K/mcL (1.50-4.80); Lymphocytes % (Auto) 29.4 % (15.5-49.0); Mean Cell Volume 88.5 fL (80.0-100.0); Mean Corpuscular HGB Conc 33.8 g/dL (31.0-36.0); Mean Platelet Volume 9.6 fL (7.4-10.4); Monocytes # (Auto) 0.68 K/mcL (0.10-0.90); Monocytes % (Auto) 7.9 % (1.0-12.0); Neutrophils % (Auto) 57.5 % (38.0-78.0); Platelet Count 284 K/mcL (140-440); RBC 2.27 M/mcL (3.59-5.38); Red Cell Distribution Width 14.3 % (11.5-14.5); WBC 8.6 K/mcL (4.5-11.0)
[2022-05-14] MEDS: SUCRALFATE 1 GM TABLET PO SCH ×3 (07:48→17:13)
[2022-05-14] MEDS: PANTOPRAZOLE 40 MG VIAL IV SCH ×2 (07:48→17:13)
[2022-05-14] MEDS: LEVOTHYROXINE SODIUM 112 MCG TABLET PO SCH ×2 (07:49→10:11)
[2022-05-14] MEDS ORDERED: LACTATED RINGERS 1,000 ML IV SCH (08:00)
[2022-05-14] MEDS ORDERED: LIDOCAINE HCL/PF 100 MG/5 ML SYRINGE IV ONE (08:08)
[2022-05-14] MEDS ORDERED: PROPOFOL 200 MG/20 ML VIAL IV ONE (08:08)
--- NOTE | 2022-05-14 08:26 | EGD Procedure Note ---
EGD Procedure Notes Procedure Information Patient information: Note initiated : 05/14/22 at 8:24 am Patient: Cassie Vora 86 y/o F admitted on 05/13/22 for syncope. Pre-op diagnosis general: Upper GI bleed Post-Op Diagnosis general: Small duodenal ulcer, no active bleed Date of Procedure: 05/14/22 Procedure: Esophagogastroduodenoscopy Procedure Narrative: After risk benefits and alternatives to the procedure were discussed with the patient at length she verbalized understanding and desire to continue with the procedure. Patient was taken to endoscopy. Surgical timeout was taken to verify patient and procedure being performed sedation was administered by anesthesia throughout the case. An adult gastroscope was entered and advanced under direct vision into the second portion of the duodenum. The antrum was fully inspected, the scope was retroflexed in the stomach. Full examination revealed small duodenal ulcer at the junction between the first and second portions of the duodenum with prior stigmata of bleeding, no active bleed was identified. Small hiatal hernia. The GE junction was at 35 cm and the esophagus was normal on full exam. EBL none. Patient tolerated procedure well. Assessment: Duodenal ulcer with evidence of recent bleed, no active bleeding identified. Small hiatal hernia.
[2022-05-14] MEDS ORDERED: 0.9 % SODIUM CHLORIDE 1,000 ML IV SCH (08:45)
[2022-05-14] MEDS ORDERED: CALCIUM W/VIT D3 500 MG TABLET PO SCH (09:00)
[2022-05-14] MEDS ORDERED: ACETAMINOPHEN 325 MG TABLET PO SCH (09:20)
[2022-05-14] MEDS ORDERED: diphenhydrAMINE 25 MG CAPSULE PO SCH (09:30)
[2022-05-14] MEDS ORDERED: 0.9 % SODIUM CHLORIDE 250 ML IV SCH ×3 (09:30→10:30)
[2022-05-14] MEDS ORDERED: LEVOTHYROXINE 100 MCG TABLET PO SCH (09:30)
[2022-05-14] MEDS: DOCUSATE SODIUM 100 MG CAPSULE PO SCH (10:09)
[2022-05-14] MEDS: FLUTICASONE PROPIONATE SPRAY.NAS NS SCH (10:10)
[2022-05-14 17:38] LABS: Hematocrit 29.9 % (34.1-44.9)
--- NOTE | 2022-05-14 17:54 | Discharge Summary ---
Discharge Provider Provider IMPORTANT FOLLOW-UP INFORMATION FOR PCP: Patient information: Note initiated : 05/14/22 at 5:51 pm Service Date, if different from initiated Date: [] Patient: Cassie Vora 86 y/o F admitted on 05/13/22 for syncope. Chief Complaint: [] Date of admission: 05/13/22 13:52 Discharge date: 05/14/22 Primary care physician: Maria Fernanda Banerjee NP Attending physician on admission: Anthony Ellis Consults: 05/13/22 Consult to Physician [CONS] Stat Comment: Consulting Provider: Anthony Ellis Reason For Exam: Physician to Consult 05/13/22 12:46 Consult to Physician [CONS] Stat Comment: Consulting Provider: Barak Solares Reason For Exam: Physician to Consult Attending physician on discharge: Anthony Ellis COURSE Hospital Course Hospital course: Ms. Vora is a 86 year old F history of lupus, essential hypertensions, mixed dyslipidemia, hypothyroidism, presenting with 1 week history of black stool. She presented to our ED last Monday for similar complaint and her hemoglobin count was 13.0. She was being discharged home. She complains of having continued multiple episode of black stool since being discharged from the ED last week. Earlier today she had a near syncope episode and was being brought to our ED for further reevaluations. She is committing of also having diffused mild cramping constant abdominal pain. Multiple episode of black stool without fresh blood. Denies any chest pain palpitations or shortness of breath. Patient is only on aspirin and is not otherwise on any blood thinner. Of note, CT abdomen imaging done from last ER visit showing a 3 cm satellite lesion with heavy central calcifications within the mesenteric cavity in the right mid abdomen. A follow-up biopsy examination was being scheduled for next Monday. Vital signs at ED presentations significant for borderline low blood pressure. Labs significant for hemoglobin count of 8.0. 05/14: Status post EGD by general surgeon Dr. Solares who found duodenal ulcer with evidence of recent blood but no active bleeding. Patient also found to have symptomatic anemia with hemoglobin 6.8. 2 unit PRBC transfusions given and repeat hemoglobin was 10.0. Patient has thus reached clinical stability and the decision was made to discharged home with any prescriptions indicated sent to pharmacy. Follow-up appointment with Dr. Solares in 3 days made for the patient's. All questions were answered prior to patient being physically discharged. Discharge diagnosis: GI bleeding from duodenal ulcer Time Spent with Patient Time attestation: Total time spent providing and/or coordinating discharge services: Time spent: Less than 30 minutes EXAM Constitutional Vitals: Temp Pulse Resp BP Pulse Ox O2 Del Method 37.4 C H 75 16 148/64 100 05/14/22 15:30 05/14/22 15:30 05/14/22 15:30 05/14/22 15:30 05/14/22 15:30 05/14/22 15:30 General appearance: cooperative and no acute distress Head Head exam: Present atraumatic and normocephalic Eye Eye exam: Present EOMI and PERRL ENT ENT exam: Present mucous membranes moist, normal exam and normal external ear exam Neck Neck exam: Present normal inspection; Absent lymphadenopathy, tenderness or thyromegaly Respiratory Respiratory exam: Absent accessory muscle use, respiratory distress or wheezes Cardiovascular Cardiovascular exam: Present normal rate and rhythm; Absent JVD GI/Abdominal GI/Abdominal exam: Present normal bowel sounds and soft; Absent organomegaly or tenderness Extremities Exam Extremities exam: Present full ROM, normal capillary refill and normal inspection; Absent tenderness Neurological Exam Neurological exam: Present alert, CN II-XII intact and oriented X3; Absent motor sensory deficit Psychiatric Psychiatric exam: Present normal affect and normal mood; Absent anxious or depressed Skin Skin exam: Present dry and intact Discharge Data Data Completed and Pending Labs on day of discharge: Labs from last 24 hours 05/14/22 05/14/22 05/14/22 17:00 05:25 05:25 WBC 8.6 RBC 2.27 L Hgb 10.0 L 6.8 L* Hct 29.9 L 20.1 L* MCV 88.5 MCH 30.0 MCHC 33.8 RDW 14.3 Plt Count 284 MPV 9.6 Immature Gran % (Auto) 0.6 H Neut % (Auto) 57.5 Lymph % (Auto) 29.4 [place] % (Auto) 7.9 Eos % (Auto) 3.8 Baso % (Auto) 0.8 Lymph # (Auto) 2.53 [place] # (Auto) 0.68 Eos # (Auto) 0.33 Baso # (Auto) 0.07 Immature Gran # 0.05 Absolute Neutrophils 4.99 Sodium 136 Potassium 3.4 Chloride 107 Carbon Dioxide 21 L Anion Gap 8.0 BUN 36 H Creatinine 1.0 GFR Calculation 50 Glucose 86 Calcium 7.7 L 05/13/22 17:51 WBC 12.1 H RBC 2.54 L Hgb 7.6 L Hct 22.7 L MCV 89.4 MCH 29.9 MCHC 33.5 RDW 14.1 Plt Count 313 MPV 9.8 Immature Gran % (Auto) 0.5 Neut % (Auto) 74.3 Lymph % (Auto) 17.8 [place] % (Auto) 5.7 Eos % (Auto) 1.1 Baso % (Auto) 0.6 Lymph # (Auto) 2.15 [place] # (Auto) 0.69 Eos # (Auto) 0.13 Baso # (Auto) 0.07 Immature Gran # 0.06 H Absolute Neutrophils 9.05 H Sodium Potassium Chloride Carbon Dioxide Anion Gap BUN Creatinine GFR Calculation Glucose Calcium Discharge Plan Patient/Caregiver Discharge Instructions Activity: increase activity as tolerated Diet: Regular Diet Prescriptions: Continued vitamin B complex PO cinnamon bark PO cranberry fruit concentrate PO Metamucil 3.4 gram/5.4 gram powder 1 tbsp PO QDAY Rx Instructions: mix into at least 8 oz of water or juice before administering multivitamin Tablet 1 tab PO QDAY lactobacillus combination no.8 PO simvastatin 10 mg tablet 10 mg PO QHS turmeric PO cholecalciferol (vitamin D3) 50 mcg (2,000 unit) capsule 50 mcg PO QDAY glucosamine sulfate [Glucosamine] 500 mg tablet 1,500 mg PO QDAY Rx Instructions: administer with meals vitamin E mixed 100 unit tablet 400 mg PO QDAY vitamin B complex [B Complex-Vitamin B12] Tablet 1 tab PO QDAY carvedilol 3.125 mg tablet 3.125 mg PO BID Rx Instructions: must administer with a meal/food levothyroxine [Euthyrox] 112 mcg tablet 112 mcg PO Q48H fluticasone propionate 50 mcg/actuation spray,suspension 1 spray intranasal BID Rx Instructions: administer into each nostril furosemide 20 mg tablet 20 mg PO QDAY lisinopril 2.5 mg tablet 2.5 mg PO QDAY sodium bicarbonate 650 mg tablet 650 mg PO BID Qty: 180 4RF copper gluconate 2 mg tablet 2 mg PO QDAY lutein 40 mg capsule 40 mg PO QDAY Rx Instructions: administer with meals lysine [L-Lysine] 500 mg tablet 500 mg PO QDAY omega 2-rjt-dst-fish oil [Fish Oil] 1,200 (144-216) mg capsule 1 cap PO QDAY zinc 50 mg tablet 50 mg PO QDAY calcium carbonate-vitamin D3 500 mg(1,250mg) -400 unit tablet,chewable 1 tab PO sucralfate [Carafate] 1 gram tablet 1 g PO BID Qty: 30 0RF levothyroxine 100 mcg Tablet 100 mcg PO Q48H Changed omeprazole 20 mg capsule,delayed release(DR/EC) 40 mg PO BID Qty: 60 0RF Discontinued aspirin 81 MG tablet,chewable 81 mg PO DAILY Follow Up Plan Follow up with: Barak Solares MD [Physician] - Maria Fernanda Banerjee NP-C [Primary Care Provider] - Patient Disposition: Home, Self-Care Prognosis: Fair Rehab Potential: Good I certify that the patient requires SNF services: No Overall status at discharge: patient is back to baseline Discharge Orders: Discharge Order (Routine); Ordered 05/14/22 Ordered By: Anthony PICHARDO VTE Deep Vein Thrombosis/Pulmonary Embolism Present on Admission: No
[2022-05-15] MEDS ORDERED: LEVOTHYROXINE 100 MCG TABLET PO SCH (07:30)
== END 2022-05-14 18:45 | disposition home or self-care (01) ==
LOC: ED 10:06 → INTOOBSV 13:52 → MEDSUR 13:52
PROVIDERS: ADMIT Internal Medicine; ATTEND Internal Medicine

== ENCOUNTER 2023-07-17 13:00 | Inpatient (IN) ==
[2023-07-17] MEDS ORDERED: 0.9 % SODIUM CHLORIDE 1,000 ML IV ONE (13:10)
[2023-07-17 13:22] LABS: POC Calcium, Ionized 1.11 (1.16-1.32); POC Creatinine 1.3 (0.6-1.2); POC Potassium 4.1 (3.3-5.1)
[2023-07-17 14:13] LABS: Basophils # (Auto) 0.05 K/mcL (0.00-0.30); Basophils % (Auto) 1.1 % (0.0-2.0); Eosinophils # (Auto) 0.03 K/mcL (0.00-0.70); Eosinophils % (Auto) 0.7 % (0.0-7.0); Hematocrit 35.5 % (34.1-44.9); Hemoglobin 12.4 g/dL (11.2-15.7); Lymphocytes # (Auto) 1.48 K/mcL (1.50-4.80); Lymphocytes % (Auto) 32.7 % (15.5-49.0); Mean Cell Volume 86.2 fL (80.0-100.0); Mean Corpuscular HGB Conc 34.9 g/dL (31.0-36.0); Mean Platelet Volume 10.4 fL (8.8-12.5); Monocytes # (Auto) 0.67 K/mcL (0.10-0.90); Monocytes % (Auto) 14.8 % (1.0-12.0); Neutrophils % (Auto) 50.3 % (38.0-78.0); Platelet Count 234 K/mcL (140-440); RBC 4.12 M/mcL (3.59-5.38); Red Cell Distribution Width 12.3 % (11.5-14.5); WBC 4.5 K/mcL (4.5-11.0)
[2023-07-17 14:32] LABS: ALT/SGPT 28 U/L (<40); AST/SGOT 39 U/L (<32); Albumin 3.4 gm/dL (3.2-5.2); Alkaline Phosphatase 148 U/L (39-117); Bilirubin,Direct 0.2 mg/dL (<0.3); Bilirubin,Total 0.9 mg/dL (0.1-1.0); Free T4 (Free Thyroxine) 1.76 ng/dL (0.93-1.70); Globulin 4.2 gm/dL (2.2-3.7); Thyroid Stimulating Hormone 16.02 uIU/mL (0.27-5.01)
[2023-07-17 15:34] LABS: Appearance,Urine HAZY (Clear); Bacteria,Urine FEW /hpf (0); Bilirubin,Urine Negative (Negative); Color,Urine YELLOW; Culture Indicated,Urine Y; Glucose,Urine (UA) Negative (Negative); Ketones,Urine Negative (Negative); Leukocyte Esterase,Urine 500 /uL (Negative); Nitrate,Urine Negative (Negative); Protein,Urine Negative (Negative); Specific Gravity,Urine 1.002 (1.000-1.035); Urine Blood Negative (Negative); Urine RBC 2 /hpf (0-3); Urine Squamous Epithelial Cell 0 /hpf (0-4); Urine WBC 72 /hpf (0-4); Urobilinogen,Urine Negative
[2023-07-17] MEDS ORDERED: cefTRIAXone 1 GM VIAL IV ONE (15:52)
[2023-07-17] MEDS ORDERED: cefTRIAXone 1 GM in DEXTROSE 5% IN WATER 50 ML IV SCH (18:01)
[2023-07-17] MEDS ORDERED: POTASSIUM CHLORIDE 40 MEQ in DEXTROSE 5% IN WATER 500 ML IV PRN (18:01)
[2023-07-17] MEDS ORDERED: POTASSIUM CHLORIDE 20 MEQ TABLET PO PRN ×2 (18:01)
[2023-07-17] MEDS ORDERED: MAGNESIUM SULFATE 2 GM/50 ML BAG IV PRN (18:01)
[2023-07-17] MEDS ORDERED: ONDANSETRON 4 MG/2 ML VIAL IV PRN (18:01)
[2023-07-17] MEDS ORDERED: IPRATROPIUM/ALBUTEROL 3 ML AMPUL.NEB NEB PRN (18:01)
[2023-07-17] MEDS ORDERED: 0.9 % SODIUM CHLORIDE 1,000 ML IV SCH (18:01)
[2023-07-17] MEDS ORDERED: ACETAMINOPHEN 325 MG TABLET PO PRN (18:01)
[2023-07-17 19:09] LABS: Sodium, Urine Random 23 mmol/L
[2023-07-17 19:15] LABS: Osmolality,Urine 133 mOSM/kg (80-1000)
[2023-07-18] MEDS: 0.9 % SODIUM CHLORIDE 10 ML SYRINGE IV SCH ×4 (00:35→21:07)
[2023-07-18 06:33] LABS: Basophils # (Auto) 0.04 K/mcL (0.00-0.30); Basophils % (Auto) 0.8 % (0.0-2.0); Eosinophils # (Auto) 0.02 K/mcL (0.00-0.70); Eosinophils % (Auto) 0.4 % (0.0-7.0); Hemoglobin 10.6 g/dL (11.2-15.7); Lymphocytes # (Auto) 1.21 K/mcL (1.50-4.80); Lymphocytes % (Auto) 24.1 % (15.5-49.0); Mean Cell Volume 88.6 fL (80.0-100.0); Mean Corpuscular HGB Conc 34.2 g/dL (31.0-36.0); Mean Platelet Volume 9.5 fL (8.8-12.5); Monocytes # (Auto) 0.78 K/mcL (0.10-0.90); Monocytes % (Auto) 15.5 % (1.0-12.0); Neutrophils % (Auto) 58.8 % (38.0-78.0); Platelet Count 205 K/mcL (140-440); Red Cell Distribution Width 12.6 % (11.5-14.5)
[2023-07-18 06:54] LABS: ALT/SGPT 21 U/L (<40); AST/SGOT 30 U/L (<32); Albumin 2.8 gm/dL (3.2-5.2); Albumin/Globulin Ratio 0.8 (1.0-2.3); Alkaline Phosphatase 127 U/L (39-117); Bilirubin,Direct < 0.2 mg/dL (0-0.3); Bilirubin,Total 0.6 mg/dL (0.1-1.0); Blood Urea Nitrogen 12 mg/dL (8-23); Carbon Dioxide 18 mmol/L (22-30); Chloride 97 mmol/L (96-108); Globulin 3.3 gm/dL (2.2-3.7); Glomerular Filtration Rate 50; Glucose 87 mg/dL (70-105); Lactate Dehydrogenase 149 U/L (135-225); Phosphorous 2.9 mg/dL (2.5-4.5); Triglycerides 91 mg/dL (<150); Uric Acid 3.8 mg/dL (2.5-8.0)
[2023-07-18] MEDS ORDERED: PANTOPRAZOLE 40 MG TABLET PO SCH (07:30)
[2023-07-18] MEDS ORDERED: LOPERAMIDE 2 MG CAPSULE PO PRN (08:00)
[2023-07-18] MEDS ORDERED: LOPERAMIDE 2 MG CAPSULE PO SCH (08:00)
[2023-07-18] MEDS ORDERED: LOSARTAN 25 MG TABLET PO SCH (09:00)
[2023-07-18] MEDS ORDERED: CARVEDILOL 3.125 MG TABLET PO SCH (09:00)
[2023-07-18] MEDS: ENOXAPARIN 40 MG/0.4 ML SYRINGE SQ SCH (09:06)
[2023-07-18] MEDS: SODIUM BICARBONATE 650 MG TABLET PO SCH ×2 (09:06→21:07)
[2023-07-18] MEDS: cefTRIAXone 1 GM VIAL IV SCH (09:15)
[2023-07-18] MEDS: OMEPRAZOLE 20 MG CAPSULE PO SCH ×2 (09:16→17:14)
[2023-07-18] MEDS: CARVEDILOL 3.125 MG TABLET PO SCH (17:14)
[2023-07-18] MEDS ORDERED: LEVOTHYROXINE 88 MCG TABLET PO SCH (21:00)
[2023-07-18] MEDS ORDERED: SIMVASTATIN 10 MG TABLET PO SCH (21:00)
[2023-07-18 22:47] LABS: Osmolality,Urine 166 mOSM/kg (80-1000); Sodium, Urine Random 38 mmol/L
[2023-07-19] MEDS: 0.9 % SODIUM CHLORIDE 10 ML SYRINGE IV SCH (05:20)
[2023-07-19 06:59] LABS: ALT/SGPT 19 U/L (<40); AST/SGOT 27 U/L (<32); Albumin 2.9 gm/dL (3.2-5.2); Albumin/Globulin Ratio 0.9 (1.0-2.3); Alkaline Phosphatase 125 U/L (39-117); Bilirubin,Direct < 0.2 mg/dL (0-0.3); Bilirubin,Total 0.5 mg/dL (0.1-1.0); Blood Urea Nitrogen 15 mg/dL (8-23); Calcium 8.3 mg/dL (8.6-10.4); Carbon Dioxide 20 mmol/L (22-30); Chloride 100 mmol/L (96-108); Globulin 3.4 gm/dL (2.2-3.7); Glomerular Filtration Rate 40; Glucose 91 mg/dL (70-105); Lactate Dehydrogenase 145 U/L (135-225); Phosphorous 2.6 mg/dL (2.5-4.5); Triglycerides 76 mg/dL (<150); Uric Acid 3.7 mg/dL (2.5-8.0)
[2023-07-19] MEDS: OMEPRAZOLE 20 MG CAPSULE PO SCH (07:20)
[2023-07-19] MEDS: CARVEDILOL 3.125 MG TABLET PO SCH (07:21)
[2023-07-19] MEDS ORDERED: LEVOTHYROXINE 88 MCG TABLET PO SCH (07:30)
[2023-07-19] MEDS: ENOXAPARIN 40 MG/0.4 ML SYRINGE SQ SCH (08:47)
[2023-07-19] MEDS: SODIUM BICARBONATE 650 MG TABLET PO SCH (08:47)
[2023-07-19] MEDS: cefTRIAXone 1 GM VIAL IV SCH (08:47)
== END 2023-07-19 14:50 | disposition home health service (06) | DRG 918 ==
LOC: ED 13:00 → MEDSUR 17:50
PROVIDERS: ADMIT Internal Medicine; ATTEND Internal Medicine

== ENCOUNTER 2023-07-30 08:52 | Observation (INO) ==
[2023-07-30 10:18] LABS: Appearance,Urine CLEAR (Clear); Bacteria,Urine FEW /hpf (0); Bilirubin,Urine Negative (Negative); Color,Urine STRAW; Culture Indicated,Urine Yes; Glucose,Urine (UA) Negative (Negative); Ketones,Urine Negative (Negative); Leukocyte Esterase,Urine 75 /uL (Negative); Nitrate,Urine Negative (Negative); Protein,Urine Negative (Negative); Specific Gravity,Urine 1.003 (1.000-1.035); Urine Blood Negative (Negative); Urine RBC 1 /hpf (0-3); Urine Squamous Epithelial Cell < 1 /hpf (0-4); Urine WBC 2 /hpf (0-4); Urobilinogen,Urine Negative
[2023-07-30 10:43] LABS: Basophils # (Auto) 0.08 K/mcL (0.00-0.30); Basophils % (Auto) 1.9 % (0.0-2.0); Eosinophils # (Auto) 0.07 K/mcL (0.00-0.70); Eosinophils % (Auto) 1.6 % (0.0-7.0); Hematocrit 31.9 % (34.1-44.9); Hemoglobin 10.8 g/dL (11.2-15.7); Lymphocytes # (Auto) 1.17 K/mcL (1.50-4.80); Lymphocytes % (Auto) 27.3 % (15.5-49.0); Mean Cell Volume 89.4 fL (80.0-100.0); Mean Corpuscular HGB Conc 33.9 g/dL (31.0-36.0); Mean Platelet Volume 9.8 fL (8.8-12.5); Monocytes # (Auto) 0.47 K/mcL (0.10-0.90); Neutrophils % (Auto) 57.7 % (38.0-78.0); Platelet Count 268 K/mcL (140-440); RBC 3.57 M/mcL (3.59-5.38); Red Cell Distribution Width 13.5 % (11.5-14.5); WBC 4.3 K/mcL (4.5-11.0)
[2023-07-30] MEDS ORDERED: 0.9 % SODIUM CHLORIDE 1,000 ML IV ONE (10:53)
[2023-07-30 11:09] LABS: Thyroid Stimulating Hormone 8.85 uIU/mL (0.27-5.01)
[2023-07-30 11:10] LABS: ALT/SGPT 18 U/L (<40); AST/SGOT 28 U/L (<32); Albumin 3.4 gm/dL (3.2-5.2); Albumin/Globulin Ratio 0.9 (1.0-2.3); Alkaline Phosphatase 136 U/L (39-117); Bilirubin,Total 0.6 mg/dL (0.1-1.0); Blood Urea Nitrogen 18 mg/dL (8-23); Calcium 9.2 mg/dL (8.6-10.4); Carbon Dioxide 20 mmol/L (22-30); Chloride 96 mmol/L (96-108); Globulin 3.7 gm/dL (2.2-3.7); Glomerular Filtration Rate 40; Glucose 96 mg/dL (70-105)
[2023-07-30] MEDS ORDERED: CEFEPIME 1 GM VIAL IV ONE (13:11)
[2023-07-30] MEDS ORDERED: IPRATROPIUM/ALBUTEROL 3 ML AMPUL.NEB NEB PRN (16:23)
[2023-07-30] MEDS ORDERED: LABETALOL 5 MG/ML ML IV PRN (16:23)
[2023-07-30] MEDS ORDERED: ACETAMINOPHEN 325 MG TABLET PO PRN (16:23)
[2023-07-30] MEDS ORDERED: ONDANSETRON 4 MG/2 ML VIAL IV PRN (16:23)
[2023-07-30] MEDS ORDERED: POTASSIUM CHLORIDE 40 MEQ in DEXTROSE 5% IN WATER 500 ML IV PRN (16:23)
[2023-07-30] MEDS ORDERED: MAGNESIUM SULFATE 2 GM/50 ML BAG IV PRN (16:23)
[2023-07-30] MEDS ORDERED: POTASSIUM CHLORIDE 20 MEQ TABLET PO PRN ×2 (16:23)
[2023-07-30] MEDS ORDERED: LABETALOL HCL 20 MG/4 ML VIAL IV ONE (20:04)
[2023-07-31 07:48] LABS: ALT/SGPT 19 U/L (<40); AST/SGOT 32 U/L (<32); Albumin/Globulin Ratio 0.8 (1.0-2.3); Alkaline Phosphatase 131 U/L (39-117); Bilirubin,Direct < 0.2 mg/dL (0-0.3); Bilirubin,Total 0.7 mg/dL (0.1-1.0); Blood Urea Nitrogen 18 mg/dL (8-23); Calcium 8.8 mg/dL (8.6-10.4); Carbon Dioxide 19 mmol/L (22-30); Chloride 102 mmol/L (96-108); Globulin 3.9 gm/dL (2.2-3.7); Glomerular Filtration Rate 50; Glucose 100 mg/dL (70-105); Lactate Dehydrogenase 235 U/L (135-225); Phosphorous 3.1 mg/dL (2.5-4.5); Triglycerides 81 mg/dL (<150); Uric Acid 4.1 mg/dL (2.5-8.0)
[2023-07-31] MEDS ORDERED: CARVEDILOL 6.25 MG TABLET PO SCH (08:00)
[2023-07-31] MEDS ORDERED: ENOXAPARIN 40 MG/0.4 ML SYRINGE SQ SCH (09:00)
[2023-07-31] MEDS ORDERED: HYDROXYCHLOROQUINE 200 MG TABLET PO SCH (09:00)
== END 2023-07-31 15:30 | disposition home or self-care (01) ==
LOC: ICU 08:52 → ED 08:52 → ICU 16:20
PROVIDERS: ADMIT Internal Medicine; ATTEND Internal Medicine